=== PATIENT | male | born 1985 | race Caucasian/White ===

== ENCOUNTER → 2016-08-07 | Outpatient (CLI) | payer BC ==
--- NOTE | 2016-08-07 08:25 | DIAGNOSTIC IMAGING REPORT ---
ABDOMINAL ULTRASOUND, RIGHT UPPER QUADRANT HISTORY: Abnormal LFTs.. COMPARISON: None. FINDINGS: Pancreas: The pancreatic head and tail are obscured by overlying bowel gas. The remaining portions of the pancreas are within normal limits. Liver: The liver is echogenic consistent with fatty change. The liver is enlarged measuring 20 cm in length. There is a 4.0 x 3.6 x 2.9 cm heterogeneous mass within the left hepatic lobe. Gallbladder: No gallbladder wall thickening. No gallstones. CBD: 4 mm. Right kidney: No hydronephrosis. IMPRESSION: Hepatomegaly with fatty change. There is a 4.0 cm heterogeneous indeterminate mass within the left hepatic lobe. This is likely benign given the patient's age. Follow-up nonemergent liver CT or MRI is recommended for further evaluation. Electronically signed by: Harley Rocha M.D. 08/07/2016 8:24 AM Dictated Date/Time: 08/07/2016 8:21 AM
== END | disposition home or self-care (01) ==
LOC: C.ULTR 07:49
PROVIDERS: ATTEND Family Medicine
DX: R79.89 Other specified abnormal findings of blood chemistry (principal); R16.0 Hepatomegaly, not elsewhere classified

== ENCOUNTER → 2016-08-21 | Outpatient (CLI) | payer BC ==
[~2016-08-21] MED LIST: OPTIRAY 320 IV PRN
--- NOTE | 2016-08-21 10:53 | DIAGNOSTIC IMAGING REPORT ---
CT SCAN OF THE ABDOMEN COMBO LIVER PROTOCOL CLINICAL HISTORY: Hepatomegaly and hepatic mass seen by ultrasound. COMPARISON STUDY: Abdominal ultrasound dated 08/07/2016. TECHNIQUE: Before and following the IV administration of 93 cc of Optiray 320, CT scan of the abdomen is performed from the lung bases to the pelvic inlet utilizing the liver mass protocol. Images are reviewed in the axial, sagittal, and coronal planes. IV contrast was administered without complication. Automated dose control exposure was utilized. CT DOSE: 1988.97 mGycm FINDINGS: Lung bases: The heart is normal in size and without pericardial effusion. The lung bases are clear. Liver: The contrast-enhanced liver is enlarged, measuring 20.8 cm in length. The liver demonstrates diffusely diminished attenuation consistent with hepatic steatosis. Fatty sparing is noted adjacent to the gallbladder fossa. There is no intrahepatic biliary ductal dilatation. There is a subtle arterially hypervascular well-circumscribed lesion seen within hepatic segment II on arterial phase image #99. This measures 3.8 x 2.7 cm, and is nearly isodense to liver on the portal venous phase series. Hepatic and portal vasculature: Hepatic arterial anatomy is conventional. The hepatic veins, portal veins, superior mesenteric vein, and splenic vein are patent. Gallbladder: Unremarkable. Spleen: Normal in size and attenuation. Pancreas: Unremarkable. Adrenal glands: Unremarkable. Kidneys: There are 2 punctate nonobstructing left renal calculi seen on the unenhanced series. No right renal calculi are identified. The contrast enhanced kidneys are normal in size and without hydronephrosis. The kidneys enhance symmetrically. Abdominal vasculature: The abdominal aorta is normal in course and caliber. Bowel: Visualized portions of the small bowel and colon are normal in course and caliber. Peritoneum: There is no intraperitoneal free air or abdominal ascites. There is a fat-containing umbilical hernia. Lymphadenopathy: None. Skeletal structures: No lytic or blastic lesions are seen. IMPRESSION: 1. There is a subtle well-circumscribed and homogeneously arterially hypervascular lesion seen in the left lobe of the liver as above. Although indeterminant, the imaging features and enhancement kinetics favor a focal nodular hyperplasia. Hepatic adenoma or hepatic cell carcinoma are considered much less likely but are the top differential considerations. MRI of the liver with Eovist is recommended for confirmation. 2. No additional hepatic lesions are identified. 3. Hepatomegaly and hepatic steatosis. 4. No acute infectious or inflammatory findings are identified in the abdomen. 5. Punctate nonobstructing left calculi. Electronically signed by: Jace Coffey M.D. 08/21/2016 10:52 AM Dictated Date/Time: 08/21/2016 10:44 AM
== END | disposition home or self-care (01) ==
LOC: C.CTS 09:43
PROVIDERS: ATTEND Family Medicine
DX: R16.0 Hepatomegaly, not elsewhere classified (principal); N20.0 Calculus of kidney; K76.0 Fatty (change of) liver, not elsewhere classified

== ENCOUNTER → 2016-09-06 | Outpatient (CLI) | payer BC ==
[~2016-09-06] MED LIST changes: +GADOXETATE DISODIUM (NON-WT BASED PROCEDURE) IV PRN; -OPTIRAY 320 IV PRN
--- NOTE | 2016-09-06 16:10 | DIAGNOSTIC IMAGING REPORT ---
LIVER COMBO CLINICAL HISTORY: 30 years-old Male presenting with NEOPLASM OF UNCERTAIN BEHAVIOR OF LIVER, GALLBLADDER AND KAMILA. TECHNIQUE: Multiplanar, multisequence MR imaging of the abdomen was performed before and after administration of intravenous contrast. IV contrast: 10 mL of Eovist. COMPARISON: Correlation made to CT from 08/21/2016. FINDINGS: Lung bases: Lung bases clear. No pericardial or pleural effusion. Liver: Normal morphology. A 4 cm mildly T2 hyperintense, mildly T1 hyperintense, diffusion isointense lesion noted in the left hepatic lobe. This lesion demonstrates avid arterial hyperenhancement and remains hyperenhancing on portal venous phase. This lesion does not retain contrast on the hepatobiliary specific phase. No loss of signal intensity on opposed phase imaging to suggest microscopic fat. No macroscopic fat evident on fat only imaging. Few nonenhancing T2 hyperintense subcentimeter lesions noted in the right hepatic lobe consistent with hepatic cysts or hamartomas. Few additional lesions are not apparent on T2-weighted imaging but are hypovascular throughout all phases of contrast, indeterminate but likely also benign. Hepatic fat fraction measures 15.5%, consistent with moderate steatosis. Conventional hepatic arterial anatomy. Superior mesenteric, portal, and hepatic veins grossly patent. Biliary: No intrahepatic or extrahepatic biliary ductal dilatation. Normal gallbladder. Pancreas: Normal. Spleen: Normal. Adrenal glands: Normal. Kidneys and ureters: Normal. No hydronephrosis. Gastrointestinal tract: Normal. No bowel obstruction. Peritoneal cavity: No free fluid or intraperitoneal gas. Vasculature: Aorta and IVC patent and normal in caliber. Lymph nodes: No enlarged lymph nodes in the abdomen or pelvis. Abdominal wall: Normal. Musculoskeletal: Normal. IMPRESSION: 1. The 4 cm left hepatic lobe lesion has imaging characteristics of an adenoma. 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 This can be associated with antigenic steroids and glycogen-storage disease as well as metabolic syndrome. Given the small risk of malignant transformation and/or follow-up, biopsy to be considered. 2. Moderate steatosis. Electronically signed by: Fernando Arriola M.D. 09/06/2016 4:09 PM Dictated Date/Time: 09/06/2016 3:57 PM
== END | disposition home or self-care (01) ==
LOC: C.MRIBC 13:27
PROVIDERS: ATTEND Family Medicine
DX: D37.6 Neoplasm of uncertain behavior of liver, gallbladder and bile ducts (principal); K76.9 Liver disease, unspecified; E88.89 Other specified metabolic disorders